=== PATIENT | male | born 1940 | race Caucasian/White ===

== ENCOUNTER 2020-05-09 05:38 | Day surgery (SDC) | payer MEDICARE, BC ==
[2020-05-07 10:41] LABS: BASOPHILS # (AUTO) 0.1 X10'3 (0-0.2); BASOPHILS % (AUTO) 1.4 % (0-1); EOSINOPHILS # (AUTO) 0.2 X10'3 (0-0.9); EOSINOPHILS % (AUTO) 3.5 % (0-6); HEMATOCRIT 45.5 % (42.0-52.0); HEMOGLOBIN 15.4 g/dl (14.0-17.9); LYMPHOCYTES # (AUTO) 1.2 X10'3 (1.1-4.8); LYMPHOCYTES % (AUTO) 20.4 % (21-51); MEAN CORPUSCULAR HEMOGLOBIN 32.2 PG (27.0-31.0); MEAN CORPUSCULAR HGB CONC 33.8 g/dL (33.0-36.5); MEAN CORPUSCULAR VOLUME 95.5 FL (78-98); MONOCYTES # (AUTO) 0.6 X10'3 (0-0.9); MONOCYTES % (AUTO) 10.5 % (2-12); NEUTROPHILS # (AUTO) 3.7 X10'3 (1.8-7.7); NEUTROPHILS % (AUTO) 64.2 % (42-75); PLATELET COUNT 186 X10'3 (140-440); RED BLOOD COUNT 4.77 X10'6 (4.70-6.10); RED CELL DISTRIBUTION WIDTH 13.9 % (11.5-14.5); WHITE BLOOD COUNT 5.8 X10'3 (4.5-11.0)
[2020-05-07 10:52] LABS: ANION GAP 5 (8-16); BLOOD UREA NITROGEN 20 MG/DL (7-18); BUN/CREATININE RATIO 16.7 (5.4-32.0); CALCIUM 8.8 MG/DL (8.5-10.1); CHLORIDE 108 MMOL/L (99-107); GLUCOSE 105 MG/DL (70-104); POTASSIUM 4.9 MMOL/L (3.5-5.1); SODIUM 141 MMOL/L (135-145); TOTAL CARBON DIOXIDE 27.7 MMOL/L (24-32); eGFR 58 ML/MIN
[2020-05-07 10:53] LABS: PARTIAL THROMBOPLASTIN TIME 30 SECONDS (22-32)
[~2020-05-09] VITALS: Ht 175.3 cm; Wt 89.2 kg
[2020-05-09] VITALS (10 sets, daily range): BP systolic 128–184; BP diastolic 62–86
[~2020-05-09 05:38] MED LIST: ASPI-1264 PO; ATOR10TA87 PO; ISOS60TA4 PO; MINO100C66 PO; NOR5T PO; OMEP-84 PO; PSYL1PAC11 PO; SENN-251 PO
[2020-05-09] MEDS ORDERED: CETI-194 PO (06:00)
[2020-05-09] MEDS ORDERED: diphenhydrAMINE 25mg capsule PO PRN (06:00)
[2020-05-09] MEDS ORDERED: LORazepam 0.5 MG tablet PO PRN (06:00)
[2020-05-09] MEDS ORDERED: normal saline 1,000 ML IV SCH (06:00)
[2020-05-09] MEDS ORDERED: CYCL1DRO OP (06:00)
[2020-05-09] MEDS ORDERED: ACET-1008 PO (06:01)
[2020-05-09] MEDS ORDERED: DOCU-150 PO (06:02)
[2020-05-09] MEDS ORDERED: ASPI-611 PO (06:06)
[2020-05-09] MEDS ORDERED: LOSA100T57 PO (06:09)
[2020-05-09] MEDS ORDERED: midazolam 2 mg/2 ml injection ONE (06:44)
[2020-05-09] MEDS ORDERED: LIDOcaine 1% (10mg/ml)w/preservative injection 20ml MDV ONE (06:44)
[2020-05-09] MEDS ORDERED: iohexol 350MG/ML 100ml bottle IV ONE (06:44)
[2020-05-09] MEDS ORDERED: fentaNYL/PF 50MCG/1 ML 2ML syringe ONE (06:44)
[2020-05-09] MEDS ORDERED: iohexol 350 MG/ML 50ML vial IV ONE (07:16)
[2020-05-09] MEDS ORDERED: OXAZEpam 15mg capsule PO PRN (08:20)
[2020-05-09] MEDS ORDERED: proCHLORperazine 10 MG/2 ml inj IV PRN (08:20)
[2020-05-09] MEDS ORDERED: normal saline 1000ml 1,000 ML IV SCH (08:20)
[2020-05-09] MEDS ORDERED: HYDROcodone/acetaminophen 10/325mg tab PO PRN (08:20)
[2020-05-09] MEDS ORDERED: HYDROcodone/acetaminophen 5mg/325mg tablet PO PRN (08:20)
[2020-05-09] MEDS ORDERED: ondansetron/PF 4mg/2ml inj IV PRN (08:20)
== END 2020-05-09 11:30 | disposition home or self-care (01) ==
LOC: SSTAY O 05:38
PROVIDERS: ATTEND Internal Medicine Interventional Cardiology
DX: R07.2 Precordial pain (principal); I25.718 Atherosclerosis of autologous vein coronary artery bypass graft(s) with other forms of angina pectoris; I10 Essential (primary) hypertension; K21.9 Gastro-esophageal reflux disease without esophagitis; I34.0 Nonrheumatic mitral (valve) insufficiency; E78.49 Other hyperlipidemia; Z79.899 Other long term (current) drug therapy; Z79.01 Long term (current) use of anticoagulants; Z79.82 Long term (current) use of aspirin; Z95.1 Presence of aortocoronary bypass graft
CPT/HCPCS: 36415; 80048; 85025; 85610; 85730; 93005; 93459; 99152; 99153; C1760; C1769; C1894; J1644; J2001; J2250; J3010; J7030; Q0163; Q9967; 93567; A4620; A6258

== ENCOUNTER 2023-02-28 12:27 | Day surgery (SDC) | payer MEDICARE, BC ==
[2023-02-25 09:28] LABS: BASOPHILS # (AUTO) 0.1 X10'3 (0-0.2); BASOPHILS % (AUTO) 1.4 % (0-1); EOSINOPHILS # (AUTO) 0.1 X10'3 (0-0.9); EOSINOPHILS % (AUTO) 3.4 % (0-6); HEMATOCRIT 44.9 % (42.0-52.0); LYMPHOCYTES # (AUTO) 0.9 X10'3 (1.1-4.8); LYMPHOCYTES % (AUTO) 20.4 % (21-51); MEAN CORPUSCULAR HEMOGLOBIN 32.6 PG (27.0-31.0); MEAN CORPUSCULAR HGB CONC 33.4 g/dL (33.0-36.5); MEAN CORPUSCULAR VOLUME 97.7 FL (78-98); MEAN PLATELET VOLUME 7.8 FL (7.4-10.4); MONOCYTES # (AUTO) 0.5 X10'3 (0-0.9); MONOCYTES % (AUTO) 10.7 % (2-12); NEUTROPHILS # (AUTO) 2.8 X10'3 (1.8-7.7); NEUTROPHILS % (AUTO) 64.1 % (42-75); PLATELET COUNT 220 X10'3 (140-440); RED BLOOD COUNT 4.59 X10'6 (4.70-6.10); RED CELL DISTRIBUTION WIDTH 14.2 % (11.5-14.5); WHITE BLOOD COUNT 4.4 X10'3 (4.5-11.0)
[2023-02-25 09:39] LABS: APTT 32 SECONDS (22-32)
[2023-02-25 09:47] LABS: ALBUMIN 3.9 G/DL (3.4-5.0); ANION GAP 12 (8-16); BLOOD UREA NITROGEN 15 MG/DL (7-18); BUN/CREATININE RATIO 13.4 (10.0-20.0); CALCIUM 8.9 MG/DL (8.5-10.1); CHLORIDE 106 MMOL/L (99-107); CHOL/HDL RATIO 2.2 (0.00-4.99); CHOLESTEROL 121 MG/DL (0-200); CREATININE 1.12 MG/DL (0.60-1.10); GLUCOSE 101 MG/DL (70-104); HDL CHOLESTEROL 55 MG/DL (35-60); LDL CHOLESTEROL 53 MG/DL (50-100); POTASSIUM 4.3 MMOL/L (3.5-5.1); SODIUM 139 MMOL/L (135-145); TOTAL CARBON DIOXIDE 21.1 MMOL/L (24-32); TRIGLYCERIDES 111 MG/DL (20-135); eGFR 63 ML/MIN
[~2023-02-28] VITALS: Ht 175.3 cm; Wt 92.0 kg
[2023-02-28] VITALS (9 sets, daily range): BP systolic 126–165; BP diastolic 74–92
[~2023-02-28 12:27] MED LIST changes: +ACET-1008 PO; -ASPI-1264 PO; +ASPI-611 PO; +CETI-194 PO; +CYCL1DRO OP; +DOCU-150 PO; -ISOS60TA4 PO; +LOSA100T57 PO; -MINO100C66 PO; -NOR5T PO; -SENN-251 PO
[2023-02-28] MEDS ORDERED: diphenhydrAMINE 25mg capsule PO PRN (12:45)
[2023-02-28] MEDS ORDERED: LORazepam 0.5 MG tablet PO PRN (12:45)
[2023-02-28] MEDS ORDERED: normal saline 1,000 ML IV SCH (12:45)
[2023-02-28] MEDS ORDERED: NIFE90TA61 PO (12:52)
[2023-02-28] MEDS ORDERED: ATOR20TA66 PO (12:52)
[2023-02-28] MEDS ORDERED: PANT40TA54 PO (12:52)
[2023-02-28] MEDS ORDERED: AMLO-381 PO (12:52)
[2023-02-28] MEDS ORDERED: verapamil 2.5 mg/ml inj IV ONE (15:27)
[2023-02-28] MEDS ORDERED: nitroGLYCERIN-Tridil 50MG/D5W 250 ML IV ONE (15:27)
[2023-02-28] MEDS ORDERED: midazolam 1 mg/ML 2ml injection ONE (15:28)
[2023-02-28] MEDS ORDERED: heparin 1,000unit/ml 10ml vial 10 ML ONE (15:28)
[2023-02-28] MEDS ORDERED: LIDOcaine 1% (10mg/ml) 2ml vial ONE (15:28)
[2023-02-28] MEDS ORDERED: iohexol 350MG/ML 100ml bottle IV ONE (15:28)
[2023-02-28] MEDS ORDERED: LIDOcaine 1% 30ml preserv. free vial ONE (15:28)
[2023-02-28] MEDS ORDERED: fentaNYL/PF 50MCG/1 ML 2ML syringe ONE (15:28)
[2023-02-28] MEDS ORDERED: iohexol 350 MG/ML 50ML vial IV ONE (15:47)
[2023-02-28] MEDS ORDERED: HYDROcodone/acetaminophen 10/325mg tab PO PRN (16:45)
[2023-02-28] MEDS ORDERED: HYDROcodone/acetaminophen 5mg/325mg tablet PO PRN (16:45)
== END 2023-02-28 19:55 | disposition home or self-care (01) ==
LOC: SSTAY O 12:27
PROVIDERS: ATTEND Student in an Organized Health Care Education/Training Program
DX: R94.39 Abnormal result of other cardiovascular function study (principal); I25.718 Atherosclerosis of autologous vein coronary artery bypass graft(s) with other forms of angina pectoris; E78.49 Other hyperlipidemia; I10 Essential (primary) hypertension; I34.0 Nonrheumatic mitral (valve) insufficiency; K21.9 Gastro-esophageal reflux disease without esophagitis; Z79.899 Other long term (current) drug therapy; Z79.82 Long term (current) use of aspirin; Z87.891 Personal history of nicotine dependence; Z79.01 Long term (current) use of anticoagulants
CPT/HCPCS: 36415; 80048; 80061; 85025; 85610; 85730; 93005; 93459; 99152; 99153; C1760; C1894; J1644; J2250; J3010; J3490; J7030; Q0163; Q9967; A6258